=== PATIENT | male | born 1960 | race Caucasian/White ===

== ENCOUNTER 2018-07-21 12:14 | Day surgery (SDC) | payer BC, OTHER ==
[~2018-07-21 12:14] MED LIST: DIPHENHYDRAMINE HCL 50 MG/ML VIAL ONE; EPINEPHRINE INJ 1 MG/10 ML DISP.SYRIN ONE; FLUMAZENIL INJ 0.5 MG/5 ML VIAL ONE; GLUCAGON,HUMAN RECOMB 1 MG INJ ONE; NALOXONE HCL INJ/PF 0.4 MG/1 ML SDV ONE; ONDANSETRON HCL INJ/PF 4 MG/2 ML SDV ONE
[2018-07-21] MEDS: MIDAZOLAM 2 MG/2 ML INJ ONE ×2 (13:07→13:11)
[2018-07-21] MEDS: FENTANYL CITRATE INJ/PF 100 MCG/2 ML AMPUL ONE ×2 (13:09→13:10)
--- NOTE | 2018-07-21 13:20 | Operative Report ---
Operative Report DATE OF SURGERY: 07/21/18 Operative Report: The risks benefits and alternatives of the procedure explained to the patient in detail and informed consent is obtained.A GIF Olympus video scope was inserted into the patient's mouth and hypopharynx, the esophagus is identified intubated and insufflated, the scope was then advanced through the esophagus stomach and duodenum, retroflexion maneuver is done, the esophagus stomach and first and second portions of the duodenum examined. PREOPERATIVE DIAGNOSIS: Noncardiac chest pain POSTOPERATIVE DIAGNOSIS: Gastritis status post biopsy rule out Helicobacter pylori. Hiatal hernia OPERATION: EGD with biopsy SURGEON: TYRESE SAL ANESTHESIA: Moderate Sedation - 4 mg of Versed, 75 mcg of fentanyl. Conscious sedation monitoring time 30 minutes. TISSUE REMOVED OR ALTERED: As noted above. COMPLICATIONS: None. ESTIMATED BLOOD LOSS: None. INTRAOPERATIVE FINDINGS: As noted above. PROCEDURE: Patient tolerated procedure well. No immediate postprocedure complications are noted. Patient discharged in good condition. Discharge date 07/21/2018. Discharge diet: Regular. Discharge activity: Regular. 2-3-week follow-up to discuss findings. Patient is instructed to call the office or proceed to the emergency room should there be any further problems or questions. I will wait on the pathology.
[2018-07-21 14:44] VITALS: BP 105/60
== END 2018-07-21 14:45 | disposition home or self-care (01) ==
LOC: END 12:14
PROVIDERS: ATTEND Internal Medicine Gastroenterology
DX: K44.9 Diaphragmatic hernia without obstruction or gangrene (principal); K29.50 Unspecified chronic gastritis without bleeding; R07.89 Other chest pain; I11.9 Hypertensive heart disease without heart failure; Z79.899 Other long term (current) drug therapy; Z79.82 Long term (current) use of aspirin
CPT/HCPCS: 43239; 88342 ×2; 88305 ×2; J2250; J3010; J0171; J1200; J1610; J2310; J2405; J3490

== ENCOUNTER → 2018-08-25 | Day surgery (SDC) | payer OTHER ==
[~2018-08-25] MED LIST changes: -DIPHENHYDRAMINE HCL 50 MG/ML VIAL ONE; -EPINEPHRINE INJ 1 MG/10 ML DISP.SYRIN ONE; -FLUMAZENIL INJ 0.5 MG/5 ML VIAL ONE; -GLUCAGON,HUMAN RECOMB 1 MG INJ ONE; +LIDOCAINE 2% JELLY 5 ML TUBE ONE; -NALOXONE HCL INJ/PF 0.4 MG/1 ML SDV ONE; -ONDANSETRON HCL INJ/PF 4 MG/2 ML SDV ONE
== END ==
LOC: END 09:11
PROVIDERS: ATTEND Internal Medicine Gastroenterology
DX: K21.9 Gastro-esophageal reflux disease without esophagitis (principal)
CPT/HCPCS: 91010

== ENCOUNTER 2018-11-24 06:48 | Observation (INO) | payer OTHER ==
[2018-11-17 08:36] LABS: HEMATOCRIT 38.8 % (37.9-51.0); HEMOGLOBIN 13.6 g/dL (13.5-17.0); MEAN CORPUSCULAR HEMOGLOBIN 31.7 pg (27.0-33.4); MEAN CORPUSCULAR HGB CONC 35.1 g/dL (32.0-36.0); MEAN CORPUSCULAR VOLUME 90 fl (80-97); PLATELET COUNT 198 10^3/uL (150-450); RED BLOOD COUNT 4.31 10^6/uL (4.35-5.55); RED CELL DISTRIBUTION WIDTH 13.5 % (11.5-14.0); WHITE BLOOD COUNT 3.7 10^3/uL (4.0-10.5)
--- NOTE | 2018-11-17 12:52 | EKG REPORT ---
SEVERITY:- BORDERLINE ECG - SINUS RHYTHM BORDERLINE T ABNORMALITIES, INFERIOR LEADS : Confirmed by: Willie Singletary MD 17-Nov-2018 12:52:18
[~2018-11-24 06:48] MED LIST changes: +CEFAZOLIN 2 GM/D5W RTU 2 GM/50 ML RTUPB IV ONE; +CEFAZOLIN 2 GM/D5W RTU 2 GM/50 ML RTUPB IV PRN; +LACTATED RINGERS 1000 ML IV PRN; +LIDOCAINE 0.5% INJ-PF (5 MG/ML) 50 ML SDV SUBCUT PRN; -LIDOCAINE 2% JELLY 5 ML TUBE ONE; +RINGERS SOLUTION,LACTATED 1,000 ML IV PRN; +SCOPOLAMINE HYDROBROMIDE 1.5 MG PATCH.TD72 ONE; +SCOPOLAMINE HYDROBROMIDE 1.5 MG PATCH.TD72 TD PRN
[2018-11-24] MEDS ORDERED: BUPIVACAINE HCL 0.25% /EPINEPHRINE INJ/PF 30 ML SDV ONE (07:28)
[2018-11-24] MEDS ORDERED: FAMOTIDINE INJ/PF 20 MG/2 ML SDV IV ONE (08:52)
[2018-11-24] MEDS ORDERED: MIDAZOLAM 2 MG/2 ML INJ IV PRN (09:03)
[2018-11-24] MEDS ORDERED: LIDOCAINE 2% INJ-PF (100 MG/5 ML) SYRINGE ONE (10:09)
[2018-11-24] MEDS ORDERED: FENTANYL CITRATE INJ/PF 250 MCG/5 ML AMPULE ONE (10:09)
[2018-11-24] MEDS ORDERED: PROPOFOL INJ 200 MG/20 ML VIAL IV ONE (10:10)
[2018-11-24] MEDS ORDERED: MIDAZOLAM 2 MG/2 ML INJ ONE (10:10)
[2018-11-24] MEDS ORDERED: FENTANYL CITRATE INJ/PF 100 MCG/2 ML AMPUL IV PRN ×2 (10:50)
[2018-11-24] MEDS ORDERED: SUGAMMADEX SODIUM 200 MG/2 ML SDV IV ONE (11:21)
[2018-11-24] MEDS ORDERED: POTASSI CL 20 MEQ/D5-1/2NS 1L 1,000 ML IV PRN (11:41)
[2018-11-24] MEDS ORDERED: ONDANSETRON HCL INJ/PF 4 MG/2 ML SDV IV PRN (11:41)
--- NOTE | 2018-11-24 11:41 | Operative Report ---
Nonrecallable Operative Report DATE OF SURGERY: 11/24/18 PREOPERATIVE DIAGNOSIS: gerd POSTOPERATIVE DIAGNOSIS: gerd OPERATION: lap binh fundoplication SURGEON: CHRISTINA TAMAYO 1ST PUBLICITY MANAGER: DIMA NICHOLS ANESTHESIA: GA TISSUE REMOVED OR ALTERED: none COMPLICATIONS: none ESTIMATED BLOOD LOSS: 10cc INTRAOPERATIVE FINDINGS: see dictation
[2018-11-24] MEDS ORDERED: FENTANYL CITRATE INJ/PF 100 MCG/2 ML AMPUL ONE (12:05)
[2018-11-24] MEDS: FENTANYL CITRATE INJ/PF 100 MCG/2 ML AMPUL IV PRN ×2 (12:06→12:20)
[2018-11-24] MEDS ORDERED: HYDROMORPHONE HCL INJ/PF 2 MG/ML AMPULE ONE (12:54)
--- NOTE | 2018-11-24 13:09 | OPERATIVE REPORT E ---
Operative Report NAME: HALEY WALKER : 1960 AGE: 57Y DATE OF SURGERY: 11/24/2018 ROOM: PREOPERATIVE DIAGNOSIS: 1. GASTROESOPHAGEAL REFLUX DISEASE. 2. HIATAL HERNIA. POSTOPERATIVE DIAGNOSIS: 1. GASTROESOPHAGEAL REFLUX DISEASE. 2. HIATAL HERNIA. OPERATION: Laparoscopic Damien fundoplication. SURGEON: CHRISTINA TAMAYO M.D. BUILDING PERFORMANCE SPECIALIST: Viviane Benavides PA-C, who was present for the entire case for wound retraction and wound closure. OPERATION: Patient brought to the operating room in awake, alert, and stable condition. Placed on the operating room table in supine position. Induced under general anesthesia and intubated. The abdomen was prepped and draped in usual sterile manner for the procedure. A Veress needle was placed into the umbilicus and the abdomen was insufflated with 6 liters of CO2 gas. A supraumbilical 10 mm incision was made with a 10 blade and a 10 mm port placed in the abdominal cavity. Intraabdominal visualization revealed no evidence of a Veress needle or trocar injury. Two 5 mm lateral ports were placed under direct vision. An epigastric 5 mm port in the left upper quadrant and a 10 mm port all under direct vision. The liver retractor was placed to retract the left lobe of the liver anterior and we identified the stomach with a moderate sized hiatal hernia *------* gastrocolic ligament along the greater curvature of the stomach between the mid greater curvature and the angle of His. This let us identify the left slip of the dory. We then turned attention to the gastrohepatic omentum and divided this with a LigaSure device, identifying the right slip of the dory. The esophagus was then mobilized from the mediastinum and the esophageal bed back into the abdominal cavity, approximately 6 cm, being careful not to injury the vagus nerves. Once this was done, a 56-Palest[place] Bougie dilator was placed into the mouth and tip of the stomach. We approximated the hiatus posterior around the Bougie dilator with #0 Surgidac sutures. Once this was completed, we passed the fundus posteriorly around the esophagus and placed it to itself anteriorly and the esophagus with 3 stitches of 0-Surgidac suture, creating a floppy Damien 1.5 cm long wrap. We removed the Bougie dilator at this point and checked for hemostasis. It was intact. We reduced the pneumoperitoneum. We closed the fascial defects in the abdominal wall with 0-Vicryl and closed all skin sutures with intracuticular 4-0 Biosyn and Steri-Strips completed the procedure. Estimated blood loss was less than 10 mL. Sponge and needle counts were correct x2. The patient was awakened in the operating room, extubated, and transferred to recovery in stable condition, no complications. DICTATING PHYSICIAN: CHRISTINA TAMAYO M.D. [id number] PHY#: [id number] ID: [id number] JOB#: [id number] ACCT: [id number] cc:CHRISTINA TAMAYO M.D. >
[2018-11-24] MEDS: HEPARIN SOD (PORCINE) 5,000 UNIT/ML 1 ML SYRINGE SUBCUT SCH ×2 (13:33→21:51)
[2018-11-24] MEDS: MORPHINE SULFATE 10 MG/ML INJ IV PRN (15:16)
[2018-11-24] MEDS ORDERED: DEXAMETHASONE SOD PHOSPHATE INJ 4 MG/1 ML VIAL ONE (16:08)
[2018-11-24] MEDS ORDERED: SUCCINYLCHOLINE CHLORIDE INJ 200 MG/10 ML VIAL ONE (16:08)
[2018-11-24] MEDS ORDERED: ONDANSETRON HCL INJ/PF 4 MG/2 ML SDV ONE (16:08)
[2018-11-24] MEDS: FAMOTIDINE INJ/PF 20 MG/2 ML SDV IV SCH (21:48)
[2018-11-24] MEDS ORDERED: VALACYCLOVIR HCL 500 MG TABLET PO SCH (22:00)
[2018-11-24] MEDS ORDERED: AMLODIPINE BESYLATE 5 MG TABLET PO SCH (22:00)
[2018-11-24] MEDS ORDERED: ATORVASTATIN CALCIUM 40 MG TABLET PO SCH (22:00)
[2018-11-25 03:57] LABS: ABSOLUTE MONOCYTES (AUTO) 0.6 10^3/uL (0.1-1.4); ABSOLUTE NEUT (AUTO) 7.1 10^3/uL (1.7-8.2); BASOPHILS % (AUTO) 0.2 % (0-2); HEMATOCRIT 37.6 % (37.9-51.0); HEMOGLOBIN 13.1 g/dL (13.5-17.0); LYMPHOCYTES % (AUTO) 11.1 % (13-45); MEAN CORPUSCULAR HEMOGLOBIN 32.1 pg (27.0-33.4); MEAN CORPUSCULAR HGB CONC 34.9 g/dL (32.0-36.0); MEAN CORPUSCULAR VOLUME 92 fl (80-97); MONOCYTES % (AUTO) 6.8 % (3-13); PLATELET COUNT 181 10^3/uL (150-450); RED BLOOD COUNT 4.09 10^6/uL (4.35-5.55); RED CELL DISTRIBUTION WIDTH 13.5 % (11.5-14.0); SEGMENTED NEUTROPHILS % (AUTO) 81.9 % (42-78); TOTAL CELLS COUNTED % (AUTO) 100 %; WHITE BLOOD COUNT 8.7 10^3/uL (4.0-10.5)
[2018-11-25 04:15] LABS: ANION GAP 8 (5-19); BLOOD UREA NITROGEN 10 mg/dL (7-20); CALCIUM 9.4 mg/dL (8.4-10.2); CARBON DIOXIDE 25 mmol/L (22-30); CHLORIDE 106 mmol/L (98-107); GLUCOSE 118 mg/dL (75-110); POTASSIUM 4.4 mmol/L (3.6-5.0); SODIUM 138.7 mmol/L (137-145)
[2018-11-25] MEDS: HEPARIN SOD (PORCINE) 5,000 UNIT/ML 1 ML SYRINGE SUBCUT SCH (05:40)
[2018-11-25] MEDS: MORPHINE SULFATE 10 MG/ML INJ IV PRN (05:44)
[2018-11-25] MEDS ORDERED: PANTOPRAZOLE SODIUM 40 MG TABLET.DR PO SCH (06:00)
--- NOTE | 2018-11-25 08:39 | DISCHARGE SUMMARY E ---
Discharge Summary NAME: HALEY WALKER : 1960 AGE: 57Y ADMITTED: 11/24/2018 DISCHARGED: The patient was admitted for an elective laparoscopic Damien fundoplication. HOSPITAL COURSE: This is a 57-year-old male who was admitted for an elective laparoscopic Damien fundoplication. On the day of surgery, he underwent the procedure and tolerated it well. Postoperatively, he had a routine benign postop course. He was initially started on a clear liquid diet on the operative day, and then slowly advanced to a full liquid diet. By the time of discharge, he is afebrile with stable vital signs, tolerating a full liquid diet. Ready for discharge home. DISCHARGE MEDICATIONS: 1. Tramadol 50 mg p.o. q.6 as needed for pain. 2. Colace 100 mg p.o. twice daily. He is instructed that he can resume driving two days after discharge, on the following Wednesday, and he is okay to shower. Avoid lifting anything greater than 5-10 pounds for the next 4-6 weeks. He will be given a follow-up appointment with me 7-10 days after discharge. DICTATING PHYSICIAN: CHRISTINA TAMAYO M.D. [id number] PHY#: [id number] ID: [id number] JOB#: [id number] ACCT: [id number] cc:CHRISTINA TAMAYO M.D. >
[2018-11-25 08:50] VITALS: BP 125/65
[2018-11-25] MEDS ORDERED: (PENDING PHARMACY ID) (Rosuvastatin Calcium [Crestor 20 Mg Tablet] 20 MG) PO SCH (10:00)
[2018-11-25] MEDS ORDERED: MULTIVITAMIN TABLET PO SCH (10:00)
[2018-11-25] MEDS: FAMOTIDINE INJ/PF 20 MG/2 ML SDV IV SCH (10:17)
--- NOTE | 2018-11-28 08:37 | OPERATIVE REPORT E ---
Operative Report NAME: HALEY WALKER : 1960 AGE: 57Y DATE OF SURGERY: 11/24/2018 ROOM: 407 PREOPERATIVE DIAGNOSIS: 1. GASTROESOPHAGEAL REFLUX DISEASE. 2. HIATAL HERNIA. POSTOPERATIVE DIAGNOSIS: 1. GASTROESOPHAGEAL REFLUX DISEASE. 2. HIATAL HERNIA. OPERATION: Laparoscopic Damien fundoplication. SURGEON: CHRISTINA TAMAYO M.D. SCHOOL GUARD: Viviane Nicole PA-C, who was present during the entire procedure to help with wound retraction and wound closure. Dictation ends here. DICTATING PHYSICIAN: CHRISTINA TAMAYO M.D. [id number] PHY#: [id number] ID: [id number] JOB#: [id number] ACCT: [id number] cc:CHRISTINA TAMAYO M.D. >
== END 2018-11-25 10:54 | disposition home or self-care (01) ==
LOC: OROUT 06:48 → 4N 11:42 → OROUT 11:42 → 4N 13:08
PROVIDERS: ADMIT Surgery; ATTEND Surgery
PROC: 0DV44ZZ Restriction of Esophagogastric Junction, Percutaneous Endoscopic Approach (ICD-10-PCS; principal; 2018-11-24 09:00)
DX: K21.9 Gastro-esophageal reflux disease without esophagitis (principal); K44.9 Diaphragmatic hernia without obstruction or gangrene; I10 Essential (primary) hypertension; E78.00 Pure hypercholesterolemia, unspecified; Z86.19 Personal history of other infectious and parasitic diseases; Z79.899 Other long term (current) drug therapy
CPT/HCPCS: 36415; 790; 80048; 85025; 85027; 93005; 93010; G0378; J0330; J0690; J1100; J1170; J2001; J2250; J2270; J2405; J2704; J3010; J3480; J3490; S0028